=== PATIENT | female | born 1990 | race Caucasian/White ===

== ENCOUNTER → 2019-11-16 | Outpatient (CLI) | payer SELFPAY ==
[~2019-11-16] MED LIST: IBUP80TA PO
== END ==
LOC: M LABSMTC 11:24
PROVIDERS: ATTEND Pediatrics
DX: Z20.828 Contact with and (suspected) exposure to other viral communicable diseases (principal); Z11.59 Encounter for screening for other viral diseases

== ENCOUNTER 2020-02-05 10:02 | Emergency (ER) | payer SELFPAY ==
[~2020-02-05] VITALS: Ht 165.1 cm; Wt 100.8 kg
[2020-02-05 10:47] LABS: BASO # 0.1 10^3/uL (0.0-0.2); BASO % 0.8 % (0.0-1.0); EOS # 0.6 10^3/uL (0.0-0.5); EOS % 6.1 % (0.0-3.0); HEMATOCRIT 40.5 % (36.0-47.0); HEMOGLOBIN 13.5 g/dl (12.0-15.5); LYMPH # 1.8 10^3/uL (1.5-5.0); LYMPH % 18.5 % (24.0-44.0); MEAN CORPUSCULAR HEMOGLOBIN 29.3 pg (27.0-33.0); MEAN CORPUSCULAR HGB CONC 33.3 g/dl (32.0-36.5); MONO # 0.7 10^3/uL (0.0-0.8); MONO % 6.5 % (0.0-5.0); NEUTROPHILS # 6.7 10^3/uL (1.5-8.5); NEUTROPHILS % 67.6 % (36.0-66.0); PLATELET COUNT, AUTOMATED 297 10^3/uL (150-450)
[2020-02-05] MEDS ORDERED: ISOVUE-370 76% 100ML VIAL As Ordered ONE (10:54)
[2020-02-05 11:09] LABS: ALBUMIN 3.7 GM/DL (3.2-5.2); BILIRUBIN,DIRECT 0.1 MG/DL (0.0-0.2); BILIRUBIN,TOTAL 0.5 MG/DL (0.2-1.0); TOTAL PROTEIN 7.7 GM/DL (6.4-8.2)
--- NOTE | 2020-02-05 12:05 | REPVR ---
PROCEDURE INFORMATION: Exam: CT Abdomen And Pelvis With Contrast Exam date and time: 02/05/2020 11:01 AM Age: 30 years old Clinical indication: Abdominal pain; Localized; Right lower quadrant (rlq); Additional info: Diffuse abd pain, rlq ttp, R/O appendicitis TECHNIQUE: Imaging protocol: Computed tomography of the abdomen and pelvis with intravenous contrast. Radiation optimization: All CT scans at this facility use at least one of these dose optimization techniques: automated exposure control; mA and/or kV adjustment per patient size (includes targeted exams where dose is matched to clinical indication); or iterative reconstruction. Contrast material: ISOVUE 370; Contrast volume: 100 ml; Contrast route: INTRAVENOUS (IV); COMPARISON: US PELVIS NON-OB COMPLETE 08/29/2015 2:34 PM FINDINGS: Lungs: The visualized portions of the lung bases are normal. Liver: There are no focal liver lesions present. Gallbladder and bile ducts: The gallbladder is normal. Pancreas: The pancreas is normal. Spleen: The spleen is normal. Adrenals: The adrenal glands are normal. Kidneys and ureters: The kidneys are normal. There is no evidence of hydronephrosis. No calculi are identified. Stomach and bowel: Unremarkable. No obstruction. No mucosal thickening. Appendix: No appendix is specifically identified. There is no evidence of fluid collections or inflammatory stranding in the right lower quadrant. Intraperitoneal space: Unremarkable. No free air. No significant fluid collection. Vasculature: Unremarkable. No abdominal aortic aneurysm. Lymph nodes: Unremarkable. No enlarged lymph nodes. Urinary bladder: Unremarkable as visualized. Reproductive: Multiple bilateral ovarian cysts are seen with varying size and density suggesting that some may reflect remote hemorrhage. Pelvic ultrasound may be helpful. Bones/joints: Unremarkable. No acute fracture. Soft tissues: Unremarkable. IMPRESSION: Multiple bilateral ovarian cysts are seen with varying size and density suggesting that some may reflect remote hemorrhage. Pelvic ultrasound may be helpful. Electronically signed by: Cody Bethea On 02/05/2020 12:05:02 PM
--- NOTE | 2020-02-05 15:16 | REPVR ---
PROCEDURE INFORMATION: Exam: US Duplex Artery and Vein of the Abdominal and/or Reproductive Organs. Complete Ovaries Exam date and time: 02/05/2020 12:34 PM Age: 30 years old Clinical indication: Abdominal pain and pelvic pain; Lower abdomen; Patient HX: Family HX of severe endometriosis; Additional info: Lower abd pain, mult b/l cysts, rlq ttp, R/O torsion TECHNIQUE: Imaging protocol: Real-time duplex ultrasound scan of the arterial and venous flow with color Doppler flow and spectral waveform analysis with image documentation. Complete duplex exam focused on the ovaries. Duplex exam was added to evaluate for torsion and other vascular conditions. COMPARISON: CT ABD/PEL W/IV CONTRAST ONLY 02/05/2020 10:56 AM FINDINGS: Right adnexa: Endovaginally, right ovary measures 2.1 x 3.3 x 1.2 cm and contains several follicles. Arterial and venous blood flow demonstrated in the right ovary on color Doppler and pulse Doppler examination. There is a cluster of simple cysts contiguous with the right ovary with the largest measuring 2.1 x 2.1 x 1.4 cm. Left adnexa: Endovaginally, the left ovary measures 5.8 x 2.6 by 4.8 cm and contains several cysts. A complex cyst measures 2.1 x 1.4 x 2.5 centimetres. A simple cyst measures 2.1 cm in greatest diameter. IMPRESSION: 1. No evidence of ovarian torsion. 2. Bilateral ovarian cysts. Right para ovarian cysts. See report from transabdominal and transvaginal ultrasound of the pelvis. PROCEDURE INFORMATION: Exam: US Pelvis Limited, Transabdominal and US Pelvis, Transvaginal Exam date and time: 02/05/2020 12:34 PM Age: 30 years old Clinical indication: Abdominal pain and pelvic pain; Lower abdomen; Patient HX: Family HX of severe endometriosis; Additional info: Lower abd pain, mult b/l cysts, rlq ttp, R/O torsion TECHNIQUE: Imaging protocol: Real-time transabdominal and transvaginal pelvic ultrasound (limited) with image documentation. Transvaginal imaging was used for better evaluation of the endometrium and adnexa. COMPARISON: CT ABD/PEL W/IV CONTRAST ONLY 02/05/2020 10:56 AM FINDINGS: Uterus/cervix: Endovaginally, the uterus measures 8 x 3.8 by 3.4 centimetres. Nabothian cyst present in the cervix. The endometrial stripe measures 0.86 cm in thickness. Right adnexa: Endovaginally, right ovary measures 2.1 x 3.3 x 1.2 cm and contains several follicles. Arterial and venous blood flow demonstrated in the right ovary on color Doppler and pulse Doppler examination. There is a cluster of simple cysts adjacent to the right ovary with the largest measuring 2.1 x 2.1 x 1.4 cm. Left adnexa: Endovaginally, the left ovary measures 5.8 x 2.6 by 4.8 cm and contains several cysts. A complex cyst measures 2.1 x 1.4 x 2.5 centimetres.A simple cyst measures 2.1 cm in greatest diameter. Pulse Doppler examination of the left ovary demonstrates arterial and venous flow. Bladder: Transabdominally, the bladder is decompressed which limits visualization of the uterus and the adnexa. IMPRESSION: 1. No evidence of ovarian torsion 2. Bilateral ovarian cysts. On the right paraovarian cysts are noted as well. In light of the patient's history of endometriosis, the findings suggest a combination of functional cysts and possible endometriomas. Follow-up examination in 6 weeks recommended Electronically signed by: Monica Pratt On 02/05/2020 15:16:20 PM
[2020-02-05] MEDS ORDERED: IBUP80TA PO (15:39)
[2020-02-05 15:43] VITALS: BP 165/88
== END 2020-02-05 15:52 | disposition home or self-care (01) ==
LOC: M ED 10:02
DX: Q50.5 Embryonic cyst of broad ligament (principal); N83.201 Unspecified ovarian cyst, right side; N83.202 Unspecified ovarian cyst, left side; R50.9 Fever, unspecified; Z87.891 Personal history of nicotine dependence; Z91.018 Allergy to other foods
CPT/HCPCS: 36415; 74177; 76830; 76856; 80047; 80076; 81001; 83690; 84702; 85025; 93976; 99284; Q9967

== ENCOUNTER → 2022-03-06 | Outpatient (CLI) | payer OTHER ==
[~2022-03-06] MED LIST changes: +ALEV220T22 PO; +EXCETAB32 PO
[2022-03-06 15:57] LABS: HEMATOCRIT 38.5 % (36.0-47.0); HEMOGLOBIN 12.9 g/dl (12.0-15.5); MEAN CORPUSCULAR HEMOGLOBIN 30.4 pg (27.0-33.0); MEAN CORPUSCULAR HGB CONC 33.5 g/dl (32.0-36.5); MEAN CORPUSCULAR VOLUME 90.6 fl (80.0-96.0); PLATELET COUNT, AUTOMATED 302 10^3/uL (150-450); RED BLOOD COUNT 4.25 10^6/uL (4.00-5.40); WHITE BLOOD COUNT 7.3 10^3/uL (4.0-10.0)
[2022-03-06 16:09] LABS: ALT/SGPT 26 U/L (12-78); BILIRUBIN,TOTAL 0.3 MG/DL (0.2-1.0); BLOOD UREA NITROGEN 11 MG/DL (7-18); CALCIUM LEVEL 9.4 MG/DL (8.5-10.1); CARBON DIOXIDE LEVEL 25 MEQ/L (21-32); CHLORIDE LEVEL 106 MEQ/L (98-107); CREATININE FOR GFR 0.74 MG/DL (0.55-1.30); GLOMERULAR FILTRATION RATE > 60.0 (>60); GLUCOSE, FASTING 91 MG/DL (70-100); POTASSIUM SERUM 3.9 MEQ/L (3.5-5.1); SODIUM LEVEL 137 MEQ/L (136-145); TOTAL PROTEIN 7.6 GM/DL (6.4-8.2)
[2022-03-08 11:17] LABS: CA 125 43.6 U/ML (<30.2)
[2022-03-09 14:08] LABS: HE4 48.5 pmol/L (0.0-61.2)
== END ==
LOC: M PLALAB 12:34
PROVIDERS: ATTEND Obstetrics & Gynecology
DX: N83.202 Unspecified ovarian cyst, left side (principal)

== ENCOUNTER → 2022-03-10 | Outpatient (CLI) | payer OTHER, SELFPAY | LOC: M LABSMTC 10:48 | PROVIDERS: ATTEND Anesthesiology | DX: Z01.812 Encounter for preprocedural laboratory examination (principal); Z20.822 Contact with and (suspected) exposure to COVID-19 ==

== ENCOUNTER → 2022-05-30 | Outpatient (CLI) | payer OTHER | LOC: M WHC 06:50 | PROVIDERS: ATTEND Obstetrics & Gynecology | DX: N83.292 Other ovarian cyst, left side (principal); N83.291 Other ovarian cyst, right side ==

== ENCOUNTER 2022-08-02 09:27 | Observation (INO) | payer OTHER ==
[~2022-08-02] VITALS: Ht 165.1 cm; Wt 107.0 kg
[2022-08-02] VITALS (7 sets, daily range): BP systolic 103–119; BP diastolic 60–73
[~2022-08-02 09:27] MED LIST changes: +ACETAMINOPHEN 1000MG 100ML IV BAG As Ordered ONE; +LIDOCAINE 2% 100MG/5ML SDV (FOR ANES.) As Ordered ONE; +MIDAZOLAM INJ 2MG/2ML VIAL As Ordered ONE; +ONDANSETRON 4MG 2ML VIAL As Ordered ONE; +ROCURONIUM BROMIDE 50MG/5ML VIAL As Ordered ONE; +ceFAZolin SOD 2 GM in IV 1 EA IV ONE; +fentaNYL 100 MCG/2 ML INJECTION As Ordered ONE; +propofoL 200 MG/20 ML VIAL As Ordered ONE
[2022-08-02] MEDS ORDERED: LR 1,000 ML IV SCH ×2 (10:05→15:20)
[2022-08-02 10:08] LABS: HEMATOCRIT 39.6 % (36.0-47.0); HEMOGLOBIN 13.4 g/dl (12.0-15.5); MEAN CORPUSCULAR HEMOGLOBIN 30.2 pg (27.0-33.0); MEAN CORPUSCULAR HGB CONC 33.8 g/dl (32.0-36.5); MEAN CORPUSCULAR VOLUME 89.2 fl (80.0-96.0); PLATELET COUNT, AUTOMATED 264 10^3/uL (150-450); RED BLOOD COUNT 4.44 10^6/uL (4.00-5.40); WHITE BLOOD COUNT 7.3 10^3/uL (4.0-10.0)
[2022-08-02] MEDS ORDERED: BUPIVACAINE HCL 0.25% 30ML VIAL As Ordered ONE (10:16)
[2022-08-02] MEDS ORDERED: METHYLENE BLUE 0.5% (5MG/ML) 10 ML AMP (PROVAYBLUE) As Ordered ONE (10:16)
[2022-08-02] MEDS ORDERED: fentaNYL 100 MCG/2 ML INJECTION As Ordered ONE (12:08)
[2022-08-02] MEDS ORDERED: ROCURONIUM BROMIDE 50MG/5ML VIAL As Ordered ONE ×2 (12:34→13:53)
[2022-08-02] MEDS ORDERED: KETOROLAC 60MG 2ML VIAL As Ordered ONE (12:49)
[2022-08-02] MEDS ORDERED: SUGAMMADEX SODIUM 500 MG/5 ML VIAL (BRIDION) As Ordered ONE (12:49)
[2022-08-02] MEDS ORDERED: HYDROmorphone HCL 2MG/ML 1ML VIAL As Ordered ONE (14:31)
[2022-08-02] MEDS ORDERED: fentaNYL 100 MCG/2 ML INJECTION IV PRN (15:20)
[2022-08-02] MEDS ORDERED: METOCLOPRAMIDE INJ 10MG/2ML VIAL IV PRN (15:20)
[2022-08-02] MEDS ORDERED: ONDANSETRON 4MG 2ML VIAL IV PRN ×2 (15:20→15:55)
[2022-08-02] MEDS: HYDROMORPHONE HCL 0.5 MG/ 0.5 ML SYRINGE IV PRN ×4 (15:54→16:20)
[2022-08-02] MEDS ORDERED: PERCOCET 5MG/325MG TAB PO PRN (15:55)
[2022-08-02] MEDS ORDERED: MORPHINE 4 MG/ML 1ML VIAL IV PRN (15:55)
[2022-08-02] MEDS: LR 1,000 ML IV SCH ×2 (15:55→21:19)
[2022-08-02] MEDS ORDERED: IBUP80TA PO (16:13)
[2022-08-02] MEDS ORDERED: PERCOCET PO (16:13)
[2022-08-02] MEDS ORDERED: COLA100C5 PO (16:13)
[2022-08-02] MEDS: oxyCODONE 5MG TAB PO PRN ×2 (16:21→16:53)
[2022-08-02] MEDS: KETOROLAC 30 MG/ML 1ML VIAL IV SCH (19:28)
[2022-08-02] MEDS: DOCUSATE SODIUM 100MG CAPSULE PO SCH (21:19)
[2022-08-03] MEDS: KETOROLAC 30 MG/ML 1ML VIAL IV SCH ×3 (01:04→13:31)
[2022-08-03 01:30] VITALS: BP 110/54
[2022-08-03] MEDS: LR 1,000 ML IV SCH (05:22)
[2022-08-03 05:30] VITALS: BP 129/75
[2022-08-03] MEDS: DOCUSATE SODIUM 100MG CAPSULE PO SCH (09:52)
[2022-08-03] MEDS: PERCOCET 5MG/325MG TAB PO PRN ×2 (09:52→14:08)
[2022-08-03 10:00] VITALS: BP 138/79
[2022-08-03] MEDS ORDERED: IBUPROFEN 800 MG TAB PO SCH (21:00)
== END 2022-08-03 14:10 | disposition home or self-care (01) ==
LOC: M SDC 09:27 → M MSPAV 16:32 → M SDC 08-03 09:26 → M MSPAV 08-03 09:27
PROVIDERS: ADMIT Obstetrics & Gynecology; ATTEND Obstetrics & Gynecology
DX: N80.9 Endometriosis, unspecified (principal); N93.9 Abnormal uterine and vaginal bleeding, unspecified; R10.2 Pelvic and perineal pain; N73.6 Female pelvic peritoneal adhesions (postinfective); F12.10 Cannabis abuse, uncomplicated; F41.9 Anxiety disorder, unspecified; M54.50 Low back pain, unspecified; Z91.010 Allergy to peanuts; Z91.018 Allergy to other foods; Z79.899 Other long term (current) drug therapy
CPT/HCPCS: 36415; 58571; 81025; 85027; 86850; 86900; 86901; 88307; 96361; 96374; 96376; J0131; J0690; J1100; J1170; J1885; J2250; J2405; J3010; Q9968; S0020; S2900